=== PATIENT | male | born 2005 | race Hispanic/Latino ===

== ENCOUNTER 2024-02-16 13:39 | Emergency (ER) | payer OTHER ==
[~2024-02-16] VITALS: Ht 175.3 cm; Wt 66.7 kg
[2024-02-16] MEDS ORDERED: IBUP-1022 PO (17:50)
[2024-02-16 17:57] VITALS: BP 128/75; TEMP 98.5; O2SAT 99
== END 2024-02-16 17:58 | disposition home or self-care (01) ==
LOC: M ED 13:39
DX: S66.512A Strain of intrinsic muscle, fascia and tendon of right middle finger at wrist and hand level, initial encounter (principal); F17.200 Nicotine dependence, unspecified, uncomplicated; F90.9 Attention-deficit hyperactivity disorder, unspecified type; Y92.009 Unspecified place in unspecified non-institutional (private) residence as the place of occurrence of the external cause; Y93.71 Activity, boxing; Y99.9 Unspecified external cause status; Z79.1 Long term (current) use of non-steroidal anti-inflammatories (NSAID)

== ENCOUNTER 2024-03-20 17:46 | Emergency (ER) | payer OTHER ==
[~2024-03-20] VITALS: Ht 177.8 cm; Wt 66.5 kg
[~2024-03-20 17:46] MED LIST: IBUP-1022 PO
[2024-03-20 19:51] LABS: BASO % 0.5 % (0.0-1.0); EOS # 0.1 10^3/uL (0.0-0.5); EOS % 2.2 % (0.0-3.0); HEMATOCRIT 43.1 % (42.0-52.0); HEMOGLOBIN 14.6 g/dl (13.5-17.5); LYMPH # 1.3 10^3/uL (1.5-5.0); LYMPH % 20.7 % (24.0-44.0); MEAN CORPUSCULAR HEMOGLOBIN 29.8 pg (27.0-33.0); MEAN CORPUSCULAR HGB CONC 33.9 g/dl (32.0-36.5); MONO % 14.7 % (2.0-8.0); NEUTROPHILS % 61.7 % (36.0-66.0); PLATELET COUNT, AUTOMATED 209 10^3/uL (150-450); WHITE BLOOD COUNT 6.5 10^3/uL (4.0-10.0)
[2024-03-20 20:06] LABS: INR 1.16; PARTIAL THROMBOPLASTIN TIME 31.5 SECONDS (24.8-34.2); PROTHROMBIN TIME 14.4 SECONDS (12.5-14.5)
[2024-03-20 20:18] LABS: LIPASE 39 U/L (12-53)
[2024-03-20 20:19] LABS: AMYLASE 84 U/L (30-118)
[2024-03-20 20:20] LABS: ALBUMIN 4.2 G/DL (3.2-5.2); ALKALINE PHOSPHATASE 112 U/L (46-116); ALT/SGPT 23 U/L (7.0-40); AST/SGOT 60 U/L (<34); BILIRUBIN,DIRECT 0.3 MG/DL (<0.4); BILIRUBIN,TOTAL 1.1 MG/DL (0.3-1.2); BLOOD UREA NITROGEN 11 MG/DL (9-23); CARBON DIOXIDE LEVEL 26 MMOL/L (20-31); CHLORIDE LEVEL 107 MMOL/L (98-107); CREATININE FOR GFR 0.87 MG/DL (0.70-1.30); GLUCOSE, FASTING 67 MG/DL (60-100); POTASSIUM SERUM 4.4 MMOL/L (3.5-5.1); SODIUM LEVEL 141 MMOL/L (136-145); TOTAL PROTEIN 7.2 G/DL (5.7-8.2)
[2024-03-20] MEDS: NS 1,000 ML IV ONE (20:31)
[2024-03-20] MEDS ORDERED: ISOVUE-370 76% 100ML VIAL As Ordered ONE (20:59)
[2024-03-20] MEDS: ONDANSETRON 4MG 2ML VIAL IV ONE (22:03)
[2024-03-20] MEDS: KETOROLAC 30 MG/ML 1ML VIAL IV ONE (22:03)
[2024-03-20 22:44] VITALS: BP 114/58; TEMP 99.1; O2SAT 99
[2024-03-20] MEDS ORDERED: CEPH500C PO (23:00)
[2024-03-20] MEDS ORDERED: ONDA-282 PO (23:00)
[2024-03-20] MEDS: CEPHALEXIN 500 MG CAP PO ONE (23:27)
== END 2024-03-20 23:31 | disposition home or self-care (01) ==
LOC: M ED 17:46
DX: J02.0 Streptococcal pharyngitis (principal); F90.9 Attention-deficit hyperactivity disorder, unspecified type; F17.200 Nicotine dependence, unspecified, uncomplicated; F10.10 Alcohol abuse, uncomplicated; Z79.2 Long term (current) use of antibiotics; Z79.83 Long term (current) use of bisphosphonates
CPT/HCPCS: 71046; 74177; 80047; 80048; 80076; 81001; 82150; 83605; 83690; 85025; 85610; 85730; 87486; 87581; 87633; 87798; 87880; 96361; 96374; 99284; J1885; J2405; Q9967

== ENCOUNTER → 2025-05-01 | Outpatient (REF) | payer OTHER, MEDICAID ==
[~2025-05-01] MED LIST changes: +CEPH500C PO; +GUAN1TA PO; +ONDA-282 PO; +RISP-105 PO
[2025-05-01 18:18] LABS: ALT/SGPT 30 U/L (7.0-40); AST/SGOT 23 U/L (<34); CALCIUM LEVEL 9.1 MG/DL (8.5-10.1); CARBON DIOXIDE LEVEL 27 MMOL/L (20-31); CHLORIDE LEVEL 106 MMOL/L (98-107); CHOLESTEROL LEVEL 174 MG/DL (<200); CHOLESTEROL RISK RATIO 3.86 (<5); CREATININE FOR GFR 1.03 MG/DL (0.70-1.30); GLOMERULAR FILTRATION RATE > 90.0 (>60); LDL CHOLESTEROL 117.8 MG/DL (<100); NON-HDL-C 129.0 MG/DL; POTASSIUM SERUM 4.2 MMOL/L (3.5-5.1); SODIUM LEVEL 144 MMOL/L (136-145); TRIGLYCERIDES LEVEL 56 MG/DL (<150)
[2025-05-01 18:22] LABS: TOTAL 25(OH) VITAMIN D 20.1 NG/ML (20.0-100.0)
[2025-05-01 18:31] LABS: ESTIMATED AVERAGE GLUCOSE 94.0 MG/DL (60-110)
== END ==
LOC: M LAB REF 17:34
PROVIDERS: ATTEND Student in an Organized Health Care Education/Training Program
DX: E55.9 Vitamin D deficiency, unspecified (principal); Z68.26 Body mass index [BMI] 26.0-26.9, adult